=== PATIENT | female | born 1945 | race Caucasian/White ===

== ENCOUNTER 2017-08-29 12:22 | Day surgery (SDC) | payer MEDICARE ==
--- NOTE | 2017-08-29 06:57 | History and Physical Report ---
DATE: 08/29/17. CHIEF COMPLAINT AND HISTORY OF CHIEF COMPLAINT: This patient presents with a history of an intractable lumbar radiculopathy and a spinal opioid infusion system infusing hydromorphone. Over the last number of refills, a battery depletion has been identified. She is here for pump battery change. PAST MEDICAL HISTORY: Noncontributory. PAST SURGICAL HISTORY: Gastric bypass, section, knee surgery and replacement, bladder surgery, pump implant. MEDICATIONS ON ADMISSION: To be provided. ALLERGIES: None listed. SOCIAL HISTORY: Smoking, caffeine, social alcohol. FAMILY HISTORY: Cerebrovascular disease, cancer. REVIEW OF SYSTEMS: The patient seems appropriate and in no acute distress. The remainder of the systems review shows glasses, legal blindness, chronic obstructive pulmonary disease, peripheral edema, bladder dysfunction, degenerative arthritis, depression. PHYSICAL EXAMINATION: General: Height and weight are not available. Weight: Unavailable. Vital Signs: Unavailable. HEENT: Within normal limits. Lungs: Clear. Heart: Regular rate and rhythm. Abdomen: Nontender. Musculoskeletal: Examination of the musculoskeletal system shows the pump at the right posterosuperior gluteal margin. The incisional site appears to be intact. There is no breakdown or cellulitis. Primary underlying pain pattern is in the bilateral lower back and lower extremities. Sensory field and motor evaluation is somewhat difficult to determine. There does appear to be change consistent with early cellulitis in the bilateral lower extremities. Neurologic: Cranial nerves are intact. IMPRESSION: 1. INTRACTABLE LUMBAR RADICULOPATHY, ICD-10 CODE M54.16 AND M54.17. 2. INTRASPINAL INFUSION SYSTEM WITH HYDROMORPHONE WITH BATTERY DEPLETION. PLAN: The patient is here for battery change on a routine basis because of depletion of the battery source. The procedure will be considered outpatient. An overnight stay will not be required. The potential risks, side effects, and complications have all been reviewed and discussed. JOB NUMBER: [id number] cc: Terry Alvarado
[~2017-08-29 12:22] MED LIST: ACETAMINOPHEN 1,000 MG/100 ML BTL IV ONE; CEFAZOLIN 2 Gram 2 GM/50 ML BAG IVPB ONE; FAMOTIDINE 20MG TABLET PO ONE; HYDROMORPHONE HCL 0.04 GM in 0.9 % SODIUM CHLORIDE 10ML VIA 40 ML IV ONE; HYDROMORPHONE PF 2MG/ML AMP 0.004 MG in 0.9 % SODIUM CHLORIDE 10ML VIA 0.998 ML IV ONE; MECLIZINE 25 MG TABLET PO ONE; METOCLOPRAMIDE 10 MG TABLET PO ONE
[2017-08-29] MEDS ORDERED: PROPOFOL 10 MG/ML VIAL IV ONE (12:23)
[2017-08-29] MEDS ORDERED: LIDOCAINE 1% W/EPI 1:200,000 MPF 30ML SQ ONE (12:23)
[2017-08-29] MEDS ORDERED: BUPIVACAINE 0.5% W/EPI MPF 30 ML VIAL IVP ONE (12:23)
[2017-08-29] MEDS ORDERED: FENTANYL PF 100MCG/2ML VIAL IV ONE (12:23)
[2017-08-29] MEDS ORDERED: HYDROMORPHONE HCL 2 MG/ML VIAL IV ONE (12:23)
[2017-08-29] MEDS ORDERED: CEFAZOLIN 1G VIAL IM ONE (12:23)
[2017-08-29] MEDS ORDERED: LIDOCAINE 2% MDV (20MG/ML) 20ML VIAL IV ONE (12:23)
--- NOTE | 2017-08-30 20:52 | Operative Note - [place] ---
DATE OF SURGERY: 08/29/17 PREOPERATIVE DIAGNOSES: 1. LUMBAR RADICULOPATHY, ICD-10 CODE = M54.16 AND M54.17. 2. IMPLANTED SPINAL OPIOID INFUSION SYSTEM HYDROMORPHONE WITH BATTERY DEPLETION. SURGERY: 1. FLUOROSCOPIC-GUIDED INCISION, SUBCUTANEOUS DISSECTION AND REMOVAL AND REPLACEMENT OF PROGRAMMABLE PUMP 40 ML PROGRAMMABLE AT RIGHT POSTERIOR GLUTEAL MARGIN. 2. PLACEMENT OF NEW PUMP ONTO FIELD FILLED WITH HYDROMORPHONE 15 MG PER ML CONCENTRATION HYDROMORPHONE. 3. RESECTION AND REVISION OF INTERNAL CATHETER AT POUCH. 4. INTERFACE REVISED CATHETER TO PUMP. PLACEMENT OF PUMP INTO POUCH SECURING TO POSTERIOR FASCIA WITH NONABSORBABLE SUTURE. 5. PLACEMENT OF CURVED #24 GAUGE SULLIVAN NEEDLE INTO ACCESS PORT OF PROGRAMMABLE PUMP ASPIRATION AND CLEARING CATHETER OF 1 ML OF CONTENTS CLEARING CATHETER OF OPIOID AND CSF MIXTURE. 6. DIAGNOSTIC MYELOGRAPHY WITH RADIOLOGIC SUPERVISION AND INTERPRETATION. 7. PROGRAMMING OF PUMP TO DELIVER BY CONTINUOUS INFUSION HYDROMORPHONE AT 0.3498 MG PER DAY. ALL ALARM VALUES WERE RESET. SURGEON: CHRIS LATIF D.O. ANESTHESIA: LOCAL SEDATION. ANESTHESIA PROVIDER: SALINA SCHMIDT CRNA INDICATION: This patient with a history of intractable radiculopathy has a spinal infusion system infusing Hydromorphone at 0.3498 mg a day. Over the last number of refills and reprogramming, a battery depletion was identified. She is here for battery replacement. PROCEDURE: Intravenous line, vital sign monitoring, IV sedation, prepped and draped with sterile technique, patient position prone. Sterile prep and sterile technique at the right posterior gluteal margin, the previous pump pouch incision infiltrated, incision made and subcutaneous dissection was conducted to the Dacron sleeve. The sleeve was opened and the pouch exteriorized. Immediately identified was a catheter which was coiled and kinked into the posterior scarring. The catheter was resected out, a new catheter component revised and interfaced with the indwelling pump catheter and the resected catheter component removed from the scar. Antibiotic irrigation and Bovie for hemostasis. The pump had been prefilled with Hydromorphone at 15 mg per mL. The pump was then placed into the pouch and secured to the posterior fascia with nonabsorbable suture. It was a 40 mL programmable. With the pump in the pouch, a #24 gauge Sullivan needle was inserted into the access port and 1 mL of catheter contents was aspirated clearing catheter of opioid and CSF mixture. Diagnostic myelography was then performed through the access port. The resulting flow characteristics showed appropriate flow characteristics within the device. The pump catheter connection was visualized. There were no kinks, bends, or leaks. The tip of the catheter at 12-1 identified with smooth linear flow myelogram characteristics identified. Functionality of the system was then confirmed. With the pump secured into the pouch, the incision was closed with Vicryl for fascia and running subcuticular Vicryl for skin, a Dermabond closure approximating the edges of the wound. He was transported to the Recovery Room after the pump was programmed to deliver continuous infusion of Hydromorphone at 0.3498 mg a day. She was stable, showing no side-effects from the procedure or the sedation when fully awake and alert, she was prepared for discharged by her request. DISCHARGE INSTRUCTIONS: 1. The sites are to remain clean and dry. No showering or bathing in any way that would disrupt dressings. If it happens, contact the Clinic. 2. Standard medications will be resumed including Levaquin, the antibiotic 500 mg once a day for 14 days. 3. The office will contact the patient within the next 24 to 48 hours to set up an appointment in the office to evaluate the incisional sites. That appointment will take place in 7 to 10 days. Between now and then, her activities should stay controlled. Limit bend, lift, push, pull. All other instructions provided, numbers to contact if problems given. She was then prepared for discharge. cc: Dr. Hemanth Riley JOB NUMBER: [id number] MTDD
== END 2017-08-29 15:35 | disposition home or self-care (01) ==
LOC: SUR 12:22
PROVIDERS: ATTEND Pain Medicine Interventional Pain Medicine
DX: M54.16 Radiculopathy, lumbar region (principal); M54.17 Radiculopathy, lumbosacral region; J44.9 Chronic obstructive pulmonary disease, unspecified; I50.9 Heart failure, unspecified
CPT/HCPCS: 62368; J0690; J1170

== ENCOUNTER 2019-03-06 09:30 | Day surgery (SDC) | payer MEDICARE ==
[2019-03-06] MEDS ORDERED: PROPOFOL 10 MG/ML VIAL IV ONE (09:31)
[2019-03-06] MEDS ORDERED: LIDOCAINE 2% MDV (20MG/ML) 20ML VIAL IV ONE (09:31)
--- NOTE | 2019-03-07 12:50 | Operative Note ---
OPERATION: COLONOSCOPY. PREOPERATIVE DIAGNOSIS: Personal history of colon polyps. History of positive Cologuard. POSTOPERATIVE DIAGNOSES: 1. A few sigmoid diverticula. 2. Fair quality colonic preparation. 3. Normal-appearing sigmoid anastomosis. PROCEDURE: After informed consent was obtained from the patient, she was placed in the left lateral decubitus position in the endoscopy suite, sedated and monitored by the department of anesthesia. Digital rectal exam was unremarkable. A well-lubricated [id number] colonoscope was inserted into the rectum and advanced to the cecum. The cecum, cecal bulb, ascending colon, transverse colon, and descending colon were free of inflammatory changes, mass lesions, or polyps. The sigmoid colon demonstrated a few diverticula. There was also noted to be normal- appearing distal sigmoid anastomosis. The rectum was unremarkable in forward and J-turn views. The endoscope was straightened, the rectal ampulla deflated, and the endoscope was removed. RECOMMENDATIONS: The preparation quality was fair. No polyps were seen. Given the quality of the preparation and her history, I would recommend repeat colonoscopy in 3 years. As always, thank you for allowing me to participate in the healthcare of your patients. MARCUS
== END 2019-03-06 11:36 | disposition home or self-care (01) ==
LOC: HOP 09:30
PROVIDERS: ATTEND Internal Medicine Gastroenterology
DX: R19.5 Other fecal abnormalities (principal); K57.30 Diverticulosis of large intestine without perforation or abscess without bleeding; K63.89 Other specified diseases of intestine; Z86.010 Personal history of colon polyps; Z91.19 Patient's noncompliance with other medical treatment and regimen; I10 Essential (primary) hypertension; J44.9 Chronic obstructive pulmonary disease, unspecified; R60.9 Edema, unspecified